=== PATIENT | female | born 1960 | race Caucasian/White ===

== ENCOUNTER → 2016-05-15 | Outpatient (CLI) | payer BC ==
[~2016-05-15] MED LIST: ANTIVERT 25MG25 MG PO; LORTAB 5/500 501 TAB PO; MOBIC 7.5MG7.5 MG PO; MOTRIN 800800 MG/TAB PO; NEURONTIN300 MG/CAP; PERCOCET 325 MG1 TA2 PO; PHENERGAN 25 TA25 MG PO; ULTRAM 50MG TAB50 MG PO
== END ==
LOC: MC.RAD 16:00
DX: Z12.31 Encounter for screening mammogram for malignant neoplasm of breast (principal)

== ENCOUNTER 2016-06-04 13:42 | Emergency (ER) | payer BC ==
[~2016-06-04] VITALS: Ht 165.1 cm; Wt 77.3 kg
[~2016-06-04 13:42] MED LIST changes: -MOBIC 7.5MG7.5 MG PO; -ULTRAM 50MG TAB50 MG PO
[2016-06-04 13:51] VITALS: BP 173/98; TEMP 97.9
[2016-06-04] MEDS ORDERED: MOBIC 7.5MG7.5 MG PO (15:52)
[2016-06-04 15:54] LABS: BASO % 0.6 % (0.0-2.0); EOS # 0.2 (0.0-0.7); GRAN # 3.5 (1.4-6.5); GRAN % 67.5 % (42.2-75.2); HEMATOCRIT 40.5 % (37.0-47.0); HEMOGLOBIN 13.6 g/dl (12.5-16.0); LYMPH # 1.1 (1.2-3.4); LYMPH % 21.7 % (20.0-51.0); MEAN CELL VOLUME 95 fl (80.0-100.0); MEAN CORPUSCULAR HEMOGLOBIN 32 pg (27.0-31.0); MEAN CORPUSCULAR HGB CONC 34 g/dl (33.0-37.0); MEAN PLATELET VOLUME 9.5 fl (7.4-10.4); MONO # 0.3 (0.1-0.6); PLATELET COUNT 271 K/mm3 (130-400); RED BLOOD COUNT 4.25 M/mm3 (4.10-5.30); WHITE BLOOD COUNT 5.2 K/mm3 (4.8-10.8)
[2016-06-04 16:20] LABS: ADJUSTED CALCIUM 8.8 mg/dL (8.4-10.2); ALANINE AMINOTRANSFERASE 19 U/L (9-52); ALBUMIN 4.5 gm/dL (3.5-5.0); ALKALINE PHOSPHATASE 51 U/L (50-136); ANION GAP 10 mmol/L (7-16); BILIRUBIN,TOTAL 0.7 mg/dL (0.0-1.0); BLOOD UREA NITROGEN 16 mg/dL (7-17); CALCIUM 9.2 mg/dL (8.4-10.2); CARBON DIOXIDE 28 mmol/L (22-30); CHLORIDE 105 mmol/L (98-107); GLUCOSE 95 mg/dL (74-106); POTASSIUM 4.6 mmol/L (3.4-5.0); SODIUM 142 mmol/L (137-145); TOTAL PROTEIN 7.3 gm/dL (6.4-8.2)
[2016-06-04 16:36] LABS: C-REACTIVE PROTEIN < 0.5 mg/dL (0.0-0.9)
[2016-06-04 16:56] LABS: ERYTHROCYTE SEDIMENTATION RATE 7 mm/hr (0-30)
[2016-06-04] MEDS ORDERED: ULTRAM 50MG TAB50 MG PO (17:03)
[2016-06-04 17:27] VITALS: PULSE 98
== END 2016-06-04 17:27 | disposition home or self-care (01) ==
LOC: COL.ER 13:42
PROVIDERS: Emergency Medicine
DX: M65.821 Other synovitis and tenosynovitis, right upper arm (principal)

== ENCOUNTER → 2016-06-26 | Outpatient (CLI) | payer BC ==
[~2016-06-26] MED LIST changes: +MOBIC 7.5MG7.5 MG PO; +ULTRAM 50MG TAB50 MG PO
== END ==
LOC: MHCPAIN 12:04
DX: G89.29 Other chronic pain (principal); M47.22 Other spondylosis with radiculopathy, cervical region; M79.2 Neuralgia and neuritis, unspecified
CPT/HCPCS: G0463

== ENCOUNTER 2018-07-16 14:10 | Emergency (ER) | payer SELFPAY ==
[~2018-07-16] VITALS: Ht 165.1 cm; Wt 80.5 kg
[2018-07-16 14:16] VITALS: TEMP 97.8
[2018-07-16 15:49] LABS: BASO # 0.1 (0.0-0.2); BASO % 0.7 % (0.0-2.0); EOS # 0.2 (0.0-0.7); EOS % 2.3 % (0-4.0); GRAN # 5.1 (1.4-6.5); GRAN % 72.5 % (42.2-75.2); HEMATOCRIT 42.3 % (37.0-47.0); HEMOGLOBIN 13.8 g/dl (12.5-16.0); LYMPH # 1.2 (1.2-3.4); LYMPH % 17.2 % (20.0-51.0); MEAN CELL VOLUME 96 fl (80.0-100.0); MEAN CORPUSCULAR HEMOGLOBIN 31 pg (27.0-31.0); MEAN CORPUSCULAR HGB CONC 33 g/dl (33.0-37.0); MEAN PLATELET VOLUME 9.1 fl (7.4-10.4); MONO # 0.5 (0.1-0.6); MONO % 6.7 % (1.7-9.3); PLATELET COUNT 295 K/mm3 (130-400)
[2018-07-16 15:58] LABS: ALANINE AMINOTRANSFERASE 6 U/L (9-52); ALBUMIN 4.3 gm/dL (3.5-5.0); ALKALINE PHOSPHATASE 61 U/L (50-136); ANION GAP 9 mmol/L (7-16); AST,SGOT 21 U/L (15-37); BILIRUBIN,TOTAL 0.5 mg/dL (0.0-1.0); BLOOD UREA NITROGEN 18 mg/dL (7-17); C-REACTIVE PROTEIN 0.7 mg/dL (0.0-0.9); CALCIUM 9.4 mg/dL (8.4-10.2); CARBON DIOXIDE 27 mmol/L (22-30); CHLORIDE 105 mmol/L (98-107); CREATININE, serum 0.93 (0.52-1.25); GLUCOSE 96 mg/dL (74-106); POTASSIUM 4.2 mmol/L (3.4-5.0); PROTHROMBIN TIME 11.6 SECONDS (9.7-12.8); SODIUM 142 mmol/L (137-145); TOTAL PROTEIN 7.6 gm/dL (6.4-8.2)
[2018-07-16 16:02] LABS: D-DIMER < 200.00 ng/mLDDu (200-230)
[2018-07-16 16:15] LABS: TROPONIN-I < 0.012 ng/mL (0.000-0.035)
--- NOTE | 2018-07-16 16:23 | NUR ---
SW was called by ED nurse to meet with patient about financial options while she is treated in the ED. SW met with patient and patient explained that she has a very low income and is worried about paying for her ED visit. Patient wanted options before decided whether or not to be seen in the ED. SW reported that [employer] offers financial assistance to patients as long as they qualify. Patient reported she would be interested in applying for that services. ALESIA contacted Shilpa from [facility] and she reports someone will visit with patient. SW reported the above to nurse.
[2018-07-16 16:43] VITALS: BP 152/101; PULSE 77
== END 2018-07-16 16:54 | disposition home or self-care (01) ==
LOC: COL.ER 14:10
PROVIDERS: Emergency Medicine
DX: R07.89 Other chest pain (principal); G89.29 Other chronic pain; M54.2 Cervicalgia

== ENCOUNTER → 2019-03-11 | Outpatient (CLI) | payer BC | LOC: COL.RAD 03-02 07:30 | DX: M54.12 Radiculopathy, cervical region (principal); M48.02 Spinal stenosis, cervical region ==

== ENCOUNTER 2019-10-13 11:12 | Outpatient (RCR) | payer BC | END 2020-01-11 | disposition home or self-care (01) | LOC: WSC | DX: G56.91 Unspecified mononeuropathy of right upper limb (principal); M54.2 Cervicalgia; Z98.51 Tubal ligation status ==

== ENCOUNTER 2020-03-27 18:43 | Emergency (ER) | payer MEDICARE, MEDICAID ==
[~2020-03-27] VITALS: Ht 165.1 cm; Wt 85.5 kg
[2020-03-27 20:03] VITALS: TEMP 97.3
[2020-03-27] MEDS ORDERED: PRINIVIL10 MG PO (21:53)
[2020-03-27 23:18] LABS: COLLECTION METHOD CLEAN CATCH
[2020-03-27 23:23] LABS: MUCOUS Present /lpf; PH 6 (5-8); SQUAMOUS EPITHELIAL 0-2 /hpf; URINE APPEARANCE Clear; URINE BACTERIA None Seen /hpf; URINE BILIRUBIN Negative (NEGATIVE); URINE BLOOD Negative (NEGATIVE); URINE COLOR Colorless; URINE GLUCOSE Negative (NEGATIVE); URINE KETONE Negative (NEGATIVE); URINE LEUKOCYTE ESTERASE Trace (NEGATIVE); URINE NITRATE Negative (NEGATIVE); URINE PROTEIN(semi-quant) Negative (NEGATIVE); URINE RBC 0-2 /hpf; URINE UROBILINOGEN Negative (NEGATIVE)
[2020-03-28 00:14] VITALS: BP 135/89; PULSE 72
== END 2020-03-28 00:20 | disposition home or self-care (01) ==
LOC: COL.ER 18:43
PROVIDERS: Nurse Practitioner Primary Care
DX: R10.30 Lower abdominal pain, unspecified (principal); G62.9 Polyneuropathy, unspecified; Z87.891 Personal history of nicotine dependence
CPT/HCPCS: J1885

== ENCOUNTER 2021-08-17 22:51 | Inpatient (IN) | payer MEDICARE, MEDICAID ==
[~2021-08-17] VITALS: Ht 165.1 cm; Wt 87.0 kg
[~2021-08-17 22:51] MED LIST changes: -LORTAB 5/500 501 TAB PO; +NORCO 325 MG-51 TAB PO; +PRINIVIL10 MG PO
[2021-08-17 23:15] LABS: BASO % 0.6 % (0.0-2.0); EOS # 0.2 K/mm3 (0.0-0.7); EOS % 2.5 % (0.0-4.0); GRAN # 4.1 K/mm3 (1.4-6.5); GRAN % 59.9 % (42.2-75.2); HEMATOCRIT 40.3 % (37.0-47.0); HEMOGLOBIN 13.3 g/dl (12.5-16.0); LYMPH % 29.2 % (20.0-51.0); MEAN CELL VOLUME 94 fl (80.0-100.0); MEAN CORPUSCULAR HEMOGLOBIN 31 pg (27-31); MEAN CORPUSCULAR HGB CONC 33 g/dl (33.0-37.0); MEAN PLATELET VOLUME 9.2 fl (7.4-10.4); MONO # 0.5 K/mm3 (0.1-0.6); MONO % 7.5 % (1.7-9.3); PLATELET COUNT 283 K/mm3 (130-400); RED BLOOD COUNT 4.31 M/mm3 (4.10-5.30)
[2021-08-17 23:23] LABS: PROTHROMBIN TIME 11.8 SECONDS (9.7-12.8)
[2021-08-17 23:26] LABS: PARTIAL THROMBOPLASTIN TIME 51.9 SECONDS (26.0-37.0)
[2021-08-17 23:41] LABS: ALBUMIN 3.9 gm/dL (3.4-4.8); BILIRUBIN,TOTAL 0.5 mg/dL (0.2-1.2); CALCIUM 9.1 mg/dL (8.4-10.2); CREATININE, serum 0.88 mg/dL (0.57-1.11); POTASSIUM 3.8 mmol/L (3.5-4.5); TOTAL PROTEIN 7.2 gm/dL (6.2-8.1); TROPONIN-I 0.024 ng/mL (0.00-0.033)
[2021-08-18] VITALS (17 sets, daily range): BP systolic 99–152; BP diastolic 67–99; PULSE 65–103; TEMP 97.8–98.3
[2021-08-18] MEDS ORDERED: MOBIC15 MG PO (00:39)
[2021-08-18] MEDS ORDERED: ROBAXIN 75750 MG/TAB PO (00:40)
[2021-08-18] MEDS ORDERED: PROAIR HFA0.09 MG/AC IH (00:41)
--- NOTE | 2021-08-18 02:15 | NUR ---
PT. TO ROOM 323 FROM ER FOR CHEST PAIN. ADMISSION ASSESSMENT COMPLETE. PT. A&O. COMPLAINING OF BEING "UNCOMFORTABLE." REPORTS THAT IS HER BASELINE FOR PAIN. DENIES CHEST PAIN. NO SKIN CONDITIONS. TROPONIN LAB DRAWN AND SENT TO LAB. PT. ORIENTED TO ROOM. CALL LIGHT IN REACH. NO FURHTER NEEDS AT THIS TIME.
--- NOTE | 2021-08-18 03:16 | NUR ---
CALVIN NOTIFIED ABOUT CRITICAL TROPONIN VALUE OF 2.240. SEE CHART FOR NEW ORDERS.
[2021-08-18 06:45] LABS: BASO % 0.5 % (0.0-2.0); EOS % 0.5 % (0.0-4.0); GRAN # 4.5 K/mm3 (1.4-6.5); GRAN % 70.3 % (42.2-75.2); HEMOGLOBIN 12.3 g/dl (12.5-16.0); LYMPH # 1.4 K/mm3 (1.2-3.4); LYMPH % 21.9 % (20.0-51.0); MEAN CELL VOLUME 94 fl (80.0-100.0); MEAN CORPUSCULAR HEMOGLOBIN 31 pg (27-31); MEAN CORPUSCULAR HGB CONC 33 g/dl (33.0-37.0); MEAN PLATELET VOLUME 9.4 fl (7.4-10.4); MONO # 0.4 K/mm3 (0.1-0.6); MONO % 6.6 % (1.7-9.3); PLATELET COUNT 268 K/mm3 (130-400); RED BLOOD COUNT 3.92 M/mm3 (4.10-5.30)
[2021-08-18 06:51] LABS: HEMATOCRIT 36.9 % (37.0-47.0)
[2021-08-18 07:04] LABS: CALCIUM 8.7 mg/dL (8.4-10.2); CHOLESTEROL RISK RATIO 2.9; CREATININE, serum 0.77 mg/dL (0.57-1.11); POTASSIUM 4.2 mmol/L (3.5-4.5)
[2021-08-18 07:16] LABS: TROPONIN-I 5.859 ng/mL (0.00-0.033)
--- NOTE | 2021-08-18 08:57 | NUR ---
Pt doing okay this morning. She does have complaints of overall not feeling well. She does report that she has chronic aches and pains and has to do water therapy and slow frequent walks. Saran with cardiology in to see pt and discussed heart cath for this afternoon. All questions answered. Pt is up in her room and is steady on her feet.
--- NOTE | 2021-08-18 10:35 | NUR ---
SW met with the patient to discuss discharge plan. The patient lives alone in [place]. She reports independence with ADLs and has a cane available, when needed. The patient's PCP is Dr. Jazmine Gomez at the [facility] and she receives her medications from [facility]. The patient provided ALESIA with an updated DPOA-HC. ALESIA placed a copy in the patient's chart. The patient's DPOA-HC is a friend, Cristal Hamilton (ph#[phone]). The alternate is another friend, Juan Gregg (ph#[phone]). The patient plans on returning home upon discharge. No additional needs at this time. *Discharge plan: home*
--- NOTE | 2021-08-18 11:30 | NUR ---
Keeping Saran with cardiology updated on pt as far as complaints, labs and vitals. No new orders at this time
--- NOTE | 2021-08-18 11:44 | NUR ---
Maria D: Onesimo Witness Situation: [employer] Sales Representative went to room on rounds Background: PT was content and resting Assessment: Pt appreciated the visit and was very thankful Recommendation: filenet admin will follow up as needed
--- NOTE | 2021-08-18 15:22 | NUR ---
Pt is off the floor for heart cath
--- NOTE | 2021-08-18 15:51 | NUR ---
SEE MERGE FOR ALL MEDICATION ADMINISTRATION TIMES, INTRA AND POST SEDATION ASSESSMENTS
--- NOTE | 2021-08-18 18:34 | NUR ---
Pt doing well since arriving to the floor from labor and delivery nurse. Pt has high anxiety and always has a lot of questions. Pts daughter is at bedside and has been there since pt arriving back to the floor. Right groin site is CDI and soft. Right radial with band in place, no bleeding noted. All questions have been answered to the best of my ability. Pt has been reminded that she is to remain on bedrest and to not use her right extremity to reposition. Pt tolerating ice water as well as jello and pudding. [facility] dinner tray ordered for her. Informed pt and her daughter that they will need to talk with the physician tomorrow if there are more specific questions.
--- NOTE | 2021-08-18 19:15 | NUR ---
3 ml of air was let out of right wrist band. Pt. tolerated well with no bleeding. 12 ml of air remaining.
--- NOTE | 2021-08-18 19:45 | NUR ---
ASSESSMENT COMPLETE. PT. LYING IN BED, EATING DINNER. A&O. COMPLAINING OF PAIN IN ARMS AND GROIN. NORCO WAS GIVEN (SEE EMAR). 3 ML AIR WAS LET OUT OF RIGHT WRIST BAND. NO BLEEDING. 2 WARM BLANKETS, SOCKS, AND A TOOTHBRUSH PROVIDED. PT. AGREEABLE TO WAIT UNTIL 2100 TO URINATE DUE TO BEDREST ORDERS. CALL LIGHT IN REACH. NO FURHTER NEEDS.
--- NOTE | 2021-08-18 20:35 | NUR ---
3 ML OF AIR WAS LET OUT OF RIGHT WRIST BAND. NO BLEEDING. PT. TOLERATED WELL. 6 ML REMAINING.
--- NOTE | 2021-08-18 21:28 | NUR ---
3 ML OF AIR WAS LET OUT OF BAND. SCANT BLEEDING WAS NOTICED. AIR WAS PUT BACK IN COMPRESSION BAND. REMAINING AIR 6 ML.
--- NOTE | 2021-08-18 22:21 | NUR ---
3 ML OF AIR TAKEN OUT OF RIGHT BAND. NO BLEREDING NOTED. PT. TOLERATED PROCEDURE. 3 ML OF AIR REMAINING.
[2021-08-19] VITALS: BP 97/62; PULSE 79
[2021-08-19 00:46] VITALS: BP 97/62; PULSE 79; TEMP 97.9
[2021-08-19 04:00] VITALS: BP 106/72; PULSE 81
[2021-08-19 04:11] VITALS: BP 106/72; PULSE 73; TEMP 98
[2021-08-19 06:18] LABS: BASO % 0.5 % (0.0-2.0); EOS # 0.2 K/mm3 (0.0-0.7); EOS % 3.3 % (0.0-4.0); GRAN # 3.5 K/mm3 (1.4-6.5); GRAN % 62.4 % (42.2-75.2); HEMATOCRIT 39.8 % (37.0-47.0); HEMOGLOBIN 13.1 g/dl (12.5-16.0); LYMPH # 1.5 K/mm3 (1.2-3.4); LYMPH % 26.4 % (20.0-51.0); MEAN CELL VOLUME 95 fl (80.0-100.0); MEAN CORPUSCULAR HEMOGLOBIN 31 pg (27-31); MEAN CORPUSCULAR HGB CONC 33 g/dl (33.0-37.0); MEAN PLATELET VOLUME 9.3 fl (7.4-10.4); MONO # 0.4 K/mm3 (0.1-0.6); MONO % 7.2 % (1.7-9.3); PLATELET COUNT 300 K/mm3 (130-400); RED BLOOD COUNT 4.18 M/mm3 (4.10-5.30); REDCELL DISTRIBUTION WIDTH-CV 13.2 % (11.5-14.5)
[2021-08-19 06:35] LABS: CALCIUM 8.9 mg/dL (8.4-10.2); CREATININE, serum 0.86 mg/dL (0.57-1.11); POTASSIUM 3.6 mmol/L (3.5-4.5)
--- NOTE | 2021-08-19 08:00 | NUR ---
Patient laying in bed, friend at the bedside. A&Ox4. VSS. IVm CDI. No complaints of chest pain. RT groin and RT radial site CDI, free of hematoma. Patient independent. Droplet precautions in place. Call light within reach
[2021-08-19 08:03] VITALS: BP 119/81; PULSE 77; TEMP 97.7
[2021-08-19 12:00] VITALS: BP 95/64; PULSE 80
--- NOTE | 2021-08-19 12:49 | NUR ---
SW gave pt financial application, due to pt worry that medicare medicaid wont pay for hospital stay. Will leave to note to timekeeping supervisor SWs to call pt at home.
[2021-08-19] MEDS ORDERED: BRILINTA90 MG PO (13:59)
[2021-08-19] MEDS ORDERED: LIPITOR 40MG TA40 MG PO (14:00)
[2021-08-19] MEDS ORDERED: ISMO 20MG20 MG PO (14:00)
[2021-08-19] MEDS ORDERED: NITROSTAT0.4 MG/TAB SL (14:01)
[2021-08-19] MEDS ORDERED: PRINIVIL20 MG PO ×2 (14:01)
[2021-08-19] MEDS ORDERED: ASPIRIN 81M81 MG/TA2 PO (14:01)
[2021-08-19] MEDS ORDERED: PRINIVIL10 MG PO (14:36)
--- NOTE | 2021-08-19 17:00 | NUR ---
Discharge paperwork reviewed with the patient and friend. Patient verbalized an understanding. IV removed, tip intact. Patient transfered by wheelchair. Personal belongings with the patient
--- NOTE | 2021-08-21 09:45 | NUR ---
RE:RAVINDER TO OM, PT WAS CALLED TODAY 08/21/21 DUE TO CARDIAC REHAB NOT BEING OPEN WHEN REFERRAL RECIEVED. DISCUSSED CAD RISK FACTORS AND SCHEDULE FOR CARDIAC REHAB.
--- NOTE | 2021-08-21 16:15 | NUR ---
RE:REFERRAL TO [facility]. STAFF COMPLETED F/U CALL 08/21/21 DUE TO DEPT BEING CLOSED OVER WEEKEND. LENGTHY DISCUSSION WITH PT - STAFF REVIEWED IMPORTANCE OF CARDIAC REHAB. WILL SEND REFERRAL TO [facility] PER PT REQUEST.
== END 2021-08-19 17:05 | disposition home or self-care (01) | DRG 247 ==
LOC: COL.ER 22:51 → SURG 23:56
PROVIDERS: Emergency Medicine; Nurse Practitioner Family; ADMIT Student in an Organized Health Care Education/Training Program
PROC: 027035Z Dilation of Coronary Artery, One Artery with Two Drug-eluting Intraluminal Devices, Percutaneous Approach (ICD-10-PCS; principal; 2021-08-18)
PROC: 4A023N7 Measurement of Cardiac Sampling and Pressure, Left Heart, Percutaneous Approach (ICD-10-PCS; 2021-08-18)
PROC: B211YZZ Fluoroscopy of Multiple Coronary Arteries using Other Contrast (ICD-10-PCS; 2021-08-18)
DX: I21.4 Non-ST elevation (NSTEMI) myocardial infarction (principal); G89.29 Other chronic pain; M54.9 Dorsalgia, unspecified; I10 Essential (primary) hypertension; G62.9 Polyneuropathy, unspecified; B97.89 Other viral agents as the cause of diseases classified elsewhere; I25.10 Atherosclerotic heart disease of native coronary artery without angina pectoris; J45.20 Mild intermittent asthma, uncomplicated; J06.9 Acute upper respiratory infection, unspecified; Z72.89 Other problems related to lifestyle; Z88.6 Allergy status to analgesic agent; Z23 Encounter for immunization
CPT/HCPCS: OP; 99233-AI; 99239; C1725; C1760; C1769; C1874; C1887; C1894; C9600; J0583; J1644; J2250; J2405; J2550; J2765; J3010; J7030